=== PATIENT | female | born 1965 | race Hispanic/Latino ===

== ENCOUNTER 2016-09-28 12:35 | Emergency (ER) | payer OTHER ==
[~2016-09-28] VITALS: Ht 152.4 cm; Wt 45.8 kg
--- NOTE | 2016-09-28 14:33 | ED SKIN/ALLERGY COMPLAINT ---
History of Present Illness General Chief Complaint: Allergy Symptoms Stated Complaint: FACIAL SWELLING,TONGUE SWELLING [id number] SAW PCP 1WK Source: patient Exam Limitations: no limitations Vital Signs & Intake/Output Vital Signs & Intake/Output Vital Signs Date Time Temp Pulse Resp B/P Pulse O2 O2 Flow FiO2 Ox Delivery Rate 09/28 1627 97.6 84 16 148/86 Room Air 09/28 1612 Room Air 09/28 1239 97.1 94 18 156/92 97 Room Air ED Intake and Output 09/29 0000 09/28 1200 Intake Total Output Total Balance Patient 101 lb Weight Allergies Coded Allergies: No Known Allergies (09/28/16) Reconcile Medications No Known Home Medications Triage Note: PT STATES THAT SHE WAS SEEN BY HER PMD LAST WEEK FOR MOUTH SWELLING AND THEY DID TEST FOR HERPES AND IT WAS NEGATIVE, CAME TO ER DUE TO THEY REFERRED HER TO PMO MANAGER AND SHE DOES NOT WANT TO WAIT AND WANTS TO KNOW WHATS WRONG NOW, PT ABLE TO SPEAK IN FULL SENTENCES , O2 SAT 97 % ON RA Triage Nurses Notes Reviewed? yes HPI: Patient presents for evaluation of possible allergy symptoms. Last Sunday the patient noticed facial swelling involving the lips and eyes nose and cheeks. Patient saw her primary care physician and was tested for infections (negative). Patient denies any associated fever or chills or cold symptoms. She denies any new medications. No wheezing or shortness of breath. Patient states that beginning 2 years ago she had itching and burning in the area of her groin. She was evaluated by a primary care doctor at that point and diagnosed with herpes. Since then she has also had problems with her gastrointestinal system but no diagnosis has been determined. Today she states that in addition to the itching of the lips or eyes nose and cheeks she is getting a strange feeling in the top of her head. She states that she uses Listerine and Vaseline in her mouth with transient relief of symptoms. Past History Travel History Traveled to [place] past 21 day No Medical History Any Pertinent Medical History? see below for history Neurological: NONE EENT: NONE Cardiovascular: NONE Respiratory: NONE Gastrointestinal: NONE Hepatic: NONE Renal: NONE Musculoskeletal: NONE Psychiatric: NONE Endocrine: NONE Blood Disorders: NONE Cancer(s): NONE [employer]/Reproductive: GENITAL HERPES Surgical History Surgical History: non-contributory Psychosocial History What is your primary language Dutch Tobacco Use: Never used ETOH Use: denies use Illicit Drug Use: denies illicit drug use Family History Hx Contributory? No Review of Systems Review of Systems Constitutional: Reports: no symptoms. EENTM: Reports: see HPI. Respiratory: Reports: no symptoms. Cardiovascular: Reports: no symptoms. GI: Reports: no symptoms. Genitourinary: Reports: no symptoms. Musculoskeletal: Reports: no symptoms. Skin: Reports: no symptoms. Neurological/Psychological: Reports: no symptoms. Hematologic/Endocrine: Reports: no symptoms. Immunologic/Allergic: Reports: no symptoms. All Other Systems: Reviewed and Negative Physical Exam Physical Exam General Appearance: SEE BELOW Comments: Gen.: Well-nourished, well-developed, no acute respiratory distress. Head: Normocephalic, atraumatic. Eyes: Normal inspection bilaterally Ears: Normal inspection bilaterally Nose: Normal inspection Throat/mouth : Moist mucosa Neck: Supple, full range of motion, no goiter Heart: Regular rate and rhythm, no murmurs rubs or gallops Lungs: Clear to auscultation bilaterally with normal air entry Chest: Nontender Back: Normal range of motion Abdomen: Soft, nontender, nondistended, normal bowel sounds Extremities: Normal range of motion grossly, equal radial pulses, no cyanosis clubbing or edema Neurologic: Cranial nerves grossly intact, speech is clear Skin: warm and dry Psychiatric: Calm, cooperative, no apparent delusions or hallucinations Progress Differential Diagnosis: allergic reaction, angioedema, contact dermatitis, drug reaction, urticaria Plan of Care: Orders Procedure Date/time Status FOLIC ACID 09/28 1444 Complete VITAMIN B12 09/28 1444 Complete CBC WITHOUT DIFFERENTIAL 09/28 1435 Complete Laboratory Tests 09/28/16 1523: Vitamin B12 544, Folate > 20.0 H 09/28/16 1501: CBC w Diff NO MAN DIFF REQ, RBC 5.08, MCV 86.4, MCH 28.7, RDW 13.1, MPV 7.9, Gran % 76.2 H, Lymphocytes % 17.1 L, Monocytes % 4.4, Eosinophils % 1.9, Basophils % 0.4, Absolute Granulocytes 8.0 H, Absolute Lymphocytes 1.8, Absolute Monocytes 0.5, Absolute Eosinophils 0.2, Absolute Basophils 0, PUBS MCHC 33.2 Departure Departure Disposition: HOME OR SELF CARE Condition: Stable Clinical Impression Primary Impression: Facial paresthesia Referrals: CHACHO SWEENEY (PCP/Family) Additional Instructions: Follow-up with your primary care doctor for additional evaluation and treatment as the cause of your symptoms is somewhat unclear at this point. Please return immediately if any concerns or sudden worsening. Departure Forms: Customer Survey General Discharge Information Prescriptions: Current Visit Scripts No Known Home Medications
[2016-09-28 15:07] LABS: ABSOLUTE BASOPHIL COUNT 0 /CUMM (0.0-0.2); ABSOLUTE EOSINOPHIL COUNT 0.2 /CUMM (0.0-0.7); ABSOLUTE LYMPH COUNT 1.8 /CUMM (1.2-3.4); ABSOLUTE MONOCYTE COUNT 0.5 /CUMM (0.10-0.60); BASOPHIL % 0.4 % (0.0-2.0); EOSINOPHIL % 1.9 % (0-5); GRANULOCYTE % 76.2 % (42.2-75.2); HEMATOCRIT 43.9 % (37-47); MEAN CORPUSCULAR HGB 28.7 PG (27.0-31.0); MEAN CORPUSCULAR HGB CONC 33.2 G/DL (33.0-37.0); MEAN CORPUSCULAR VOLUME 86.4 FL (81.0-99.0); MEAN PLATELET VOLUME 7.9 FL (7.4-10.4); PLATELET COUNT 302 /CUMM (130-400); RBC DISTRIBUTION WIDTH 13.1 % (11.5-14.5); RED BLOOD CELL CT 5.08 /CUMM (4.20-5.40); WHITE BLOOD CELL COUNT 10.5 /CUMM (4.8-10.8)
[2016-09-28 16:27] VITALS: BP 148/86
== END 2016-09-28 16:28 ==
LOC: ERH 12:35
PROVIDERS: Emergency Medicine
DX: R20.2 Paresthesia of skin (principal)